=== PATIENT | female | born 1990 | race African-American/Black ===

== ENCOUNTER 2019-09-26 11:25 | Outpatient (CLI) | payer OTHER, SELFPAY ==
--- NOTE | ~2019-09-26 | XR_ITS ---
XR lumbar spine min 4V DATE: 09/26/2019 11:55 INDICATION: Radiculopathy TECHNIQUE: AP, lateral, COMPARISON: None FINDINGS: There is a transitional lumbosacral vertebra. No fracture or bone destruction. The pedicles are intact. The lumbar interspaces are well preserved . The sacroiliac joints are intact. No spondylosis or spondylolisthesis. IMPRESSION: Transitional lumbosacral vertebra Reviewed, dictated and finalized at location B.
== END 2019-09-26 11:26 | disposition home or self-care (01) ==
LOC: ANHIMG 11:32
PROVIDERS: PCP Family Medicine; Visit Provider Family Medicine
DX: M54.17 Radiculopathy, lumbosacral region (principal); Q76.49 Other congenital malformations of spine, not associated with scoliosis
CPT/HCPCS: 72110

== ENCOUNTER 2019-10-04 12:37 | Outpatient (CLI) | payer OTHER, SELFPAY ==
--- NOTE | ~2019-10-04 | MR_ITS ---
EXAMINATION: MR lumbar spine wo con DATE: 10/04/2019 13:25 INDICATION: Lumbar radiculopathy. TECHNIQUE: Magnetic resonance imaging (MRI) of the lumbar spine was performed without intravenous con trast. Sequences included sagittal T2-weighted FSE, sagittal T2-weighted FS FSE, sagittal T1-weighted FSE, and axial T2-weighted FSE. COMPARISON: Lumbar spine radiographs 09/26/2019 FINDINGS: There is a transitional segment at lumbosacral junction is designated S1. Bone alignment is normal. Vertebral body heights and intervertebral disc heights are normal. The distal spinal cord si gnal intensity is normal. The conus medullaris is at L1-L2. The following disc levels are specificall y discussed: L1-L2: The disc does not extend beyond the endplate margin. There is mild bilateral facet joint osteo arthritis. There is no neural foraminal stenosis. There is no central canal stenosis. L2-L3: The disc does not extend beyond the endplate margin. There is no facet joint osteoarthritis. T here is no neural foraminal stenosis. There is no central canal stenosis. L3-L4: The disc does not extend beyond the endplate margin. There is mild bilateral facet joint osteo arthritis. There is no neural foraminal stenosis. There is no central canal stenosis. L4-L5: The disc does not extend beyond the endplate margin. There is no facet joint osteoarthritis. T here is no neural foraminal stenosis. There is no central canal stenosis. L5-S1: There is a right foraminal protrusion. There is mild bilateral facet joint osteoarthritis. The re is mild right neural foraminal stenosis. There is no central canal stenosis. IMPRESSION: 1. Mild lumbar spondylosis. Reviewed, dictated and finalized at location A. IMPRESSION: 1. Mild lumbar spondylosis.
== END 2019-10-04 12:38 | disposition home or self-care (01) ==
PROVIDERS: PCP Family Medicine; Visit Provider Family Medicine
DX: M47.26 Other spondylosis with radiculopathy, lumbar region (principal)
CPT/HCPCS: 72148

== ENCOUNTER → 2020-07-03 12:11 | Outpatient (CLI) | payer OTHER, SELFPAY ==
--- NOTE | ~2020-07-03 | XR_ITS ---
XR foot RT 2V DATE: 07/03/2020 12:22 INDICATION: Positive KEVIN TECHNIQUE: AP and lateral views of right foot COMPARISON: None FINDINGS: No fracture or dislocation, periosteal reaction or bone destruction. Joint spaces are prese rved. No erosive changes. IMPRESSION: Negative Reviewed, dictated and finalized at location A. IMPRESSION: Negative
--- NOTE | ~2020-07-03 | XR_ITS ---
XR foot LT 2V DATE: 07/03/2020 12:23 INDICATION: Positive KEVIN TECHNIQUE: AP and lateral views COMPARISON: None FINDINGS: No fracture or dislocation, periosteal reaction or bone destruction or erosive change. Join t spaces are well preserved. IMPRESSION: Negative Reviewed, dictated and finalized at location A. IMPRESSION: Negative
== END ==
DX: R76.8 Other specified abnormal immunological findings in serum (principal); I73.00 Raynaud's syndrome without gangrene; M79.671 Pain in right foot; M79.672 Pain in left foot
CPT/HCPCS: 73620

== ENCOUNTER 2021-03-08 16:29 | Outpatient (RCR) | payer OTHER, SELFPAY ==
[2021-03-08 17:00] VITALS: BP 90/57; PULSE 96
[2021-03-08 18:10] LABS: Add Urine Microscopic? YES; Appearance Urine Cloudy (Clear); Bacteria Urine Trace /hpf; Bilirubin Urine Negative (Negative); Blood Urine Negative (Negative); Color Urine Yellow (Yellow); Glucose Urine UA Negative (Negative); Ketones Urine Negative (Negative); Leukocyte Esterase Ur Negative LEU/UL (NEGATIVE); Mucus Urine Rare /lpf; Nitrate Urine Negative (Negative); Protein Urine 1+ mg/dL (Negative); Specific Grav Ur 1.028 (1.001-1.035); Squamous Epithelial Cell Urine Few /hpf (Few); Urobilinogen Urine Negative mg/dL (<2.0); WBC Urine 0-3 /hpf (0-3)
== END 2021-06-06 23:59 | disposition home or self-care (01) ==
LOC: ANHOBOP 16:29
PROVIDERS: PCP Family Medicine; Visit Provider Obstetrics & Gynecology
DX: O99.891 Other specified diseases and conditions complicating pregnancy (principal); R55 Syncope and collapse; Z3A.21 21 weeks gestation of pregnancy
CPT/HCPCS: 59025; 81001; 87086; 87088

== ENCOUNTER 2021-05-05 09:43 | Observation (INO) | payer OTHER, SELFPAY ==
[2021-05-05] VITALS (23 sets, daily range): BP systolic 87–103; BP diastolic 51–81; PULSE 78–110; O2SAT 96–100; BMI 27.3
--- NOTE | 2021-05-05 10:24 | OBADM ---
This patient, Meredith Gimenez, admitted to the OB room OB Post 113 for observation. Patient/family oriented to hospital policies and general routines including ID bracelet, bed and alarms, visiting hours, pain management, procedures, bathroom and other care routines, personal items, smoking policy, room service/diet, and visiting hours. Patient/Family are encouraged to report perceived risks to care and to ask questions if they do not understand what they are told or what they should do.
[2021-05-05 10:44] LABS: Glucose Point of Care 80 mg/dl (65-105)
[2021-05-05 12:33] LABS: Add Urine Microscopic? YES; Appearance Urine Clear (Clear); Bilirubin Urine Negative (Negative); Blood Urine Negative (Negative); Color Urine Yellow (Yellow); Glucose Urine UA Negative (Negative); Ketones Urine Negative (Negative); Leukocyte Esterase Ur Trace LEU/UL (Negative); Mucus Urine Rare /lpf; Nitrate Urine Negative (Negative); Protein Urine Negative (Negative); RBC Urine 0-2 /hpf (0-2); Specific Grav Ur 1.005 (1.001-1.035); Squamous Epithelial Cell Urine Few /hpf (Few); Urobilinogen Urine Negative mg/dL (<2.0); WBC Urine 0-3 /hpf
--- NOTE | 2021-05-23 11:44 | PM.OBTRLD ---
OB - Triage/Final Diagnosis Visit Information Comments/Additional reasons for admission: I have assessed the risk for this patient, Meredith Gimenez, and determined that she would benefit from observation care. Evaluation Laboratory results: Laboratory Tests 05/05/21 05/05/21 10:38 11:15 POC Capillary Glucose 80 Urine Color Yellow Urine Appearance Clear Urine pH 7.0 Ur Specific Leopold 1.005 Urine Protein Negative Urine Glucose (UA) Negative Urine Ketones Negative Ur Blood (Man) Negative Urine Nitrate Negative Urine Bilirubin Negative Urine Urobilinogen Negative Leukocyte Esterase Rfl Trace H Urine RBC 0-2 Urine WBC 0-3 Ur Squamous Epith Cells Few Urine Mucus Rare Final Diagnosis (1) Vomiting affecting : Code(s): O21.9 - Vomiting of , unspecified Status: Acute
== END 2021-05-05 13:15 | disposition home or self-care (01) ==
PROVIDERS: Admitting Provider Obstetrics & Gynecology; PCP Family Medicine; Visit Provider Obstetrics & Gynecology
DX: O21.9 Vomiting of pregnancy, unspecified (principal); Z3A.30 30 weeks gestation of pregnancy
CPT/HCPCS: 81001; 82948; G0378; G0379

== ENCOUNTER 2021-07-10 08:22 | Inpatient (IN) | payer OTHER, SELFPAY ==
[2021-07-10] VITALS (32 sets, daily range): BP systolic 97–144; BP diastolic 51–83; PULSE 80–124; RESP 18; TEMP 36.1–37.1; O2SAT 99–100; BMI 30.5
[2021-07-10 09:32] LABS: Basophils Percent Auto 0.4 % (0.2-1.2); Eosinophils Absolute Auto 0.1 K/mm3 (0-0.3); Eosinophils Percent Auto 1.2 % (0-4.4); Hematocrit 38.3 % (37.0-47.0); Hemoglobin 12.6 g/dL (12.0-15.0); Immature Granulocyte Absolute 0.06 K/mm3 (0.00-0.031); Immature Granulocyte Percent A 0.6 % (0-0.5); Mean Corpuscular HGB Conc 32.9 g/dl (32-36); Mean Corpuscular Hemoglobin 29.9 pg (26-34); Mean Corpuscular Volume 90.8 fl (80-100); Mean Platelet Volume 10.3 fl (7.4-10.4); Monocytes Absolute Auto 0.7 K/mm3 (0.1-0.6); Monocytes Percent Auto 6.9 % (2.6-8.5); Neutrophils Absolute Auto 6.8 K/mm3 (1.3-6.7); Neutrophils Percent Auto 71.9 % (45.5-73.1); Platelet Count Result 224 k/mm3 (150-375); Red Blood Count 4.22 M/mm3 (4.2-5.4); Red Cell Distribution Width 14.6 % (11.5-14.5); White Blood Count 9.5 K/mm3 (4.5-10.0)
[2021-07-10] MEDS: LACTATED RINGERS 1,000 ML 125 ML IV CONT (09:39)
[2021-07-10] MEDS: ceFAZolin 2 GM/D5W 50 ML 2 GM/50 ML BAG IVPB (09:41)
--- NOTE | 2021-07-10 09:58 | LDADM ---
This patient, Meredith Gimenez, was admitted to Labor/Delivery/Recovery 103 on 07/10/21 at 08:22. Plans for labor, pain management and were discussed with patient. Patient/family oriented to hospital policies and general routines including ID bracelet, bed and alarms, visiting hours, pain management, procedures, bathroom and other care routines, personal items, smoking policy, room service/diet and guest tray routines, infant security routines, and visiting hours. Patient/Family are encouraged to report perceived risks to care and to ask questions if they do not understand what they are told or what they should do. See OBIX for further documentation.
[2021-07-10] MEDS: ONDANSETRON INJ 4 MG/2 ML VIAL IV PUSH (10:18)
[2021-07-10] MEDS: fentaNYL CITRATE INJ (*CRX) 100 MCG/2 ML VIAL 50 MCG IV PUSH (10:30)
--- NOTE | 2021-07-10 11:06 | P.PNAN_ITS ---
Anes - Eval Pre Procedure Procedure: labor epidural Date/Time: 07/10/21 11:06 Surgeon: kalyn Preop Diagnosis: pain during labor Pre Op Diagnosis: Labor Patient Data Age: 31 Gender: F Height: 1.65 m Weight: 83.25 kg Last Vital Signs Temp 36.6 C 07/10/21 09:48 Pulse 124 H 07/10/21 09:30 BP 111/76 07/10/21 09:30 Allergies Allergy/AdvReac Type Severity Reaction Status Date / Time Penicillins Allergy Unknown Skin Verified 11/17/20 15:42 Reaction Home Medications Medication Instructions Recorded Confirmed Type prenat.vits,edwina,nuf-oiru-uonoi 1 tablet PO DAILY 11/19/20 07/10/21 History cetirizine [Zyrtec] mg 07/10/21 History Laboratory Tests 07/10/21 07/10/21 07/10/21 09:18 09:18 09:18 WBC 9.5 K/mm3 K/mm3 (4.5-10.0) RBC 4.22 M/mm3 M/mm3 (4.2-5.4) Hgb 12.6 g/dL g/dL (12.0-15.0) Hct 38.3 % % (37.0-47.0) MCV 90.8 fl fl (80-100) MCH 29.9 pg pg (26-34) MCHC 32.9 g/dl g/dl (32-36) RDW 14.6 % H % (11.5-14.5) Plt Count 224 k/mm3 k/mm3 (150-375) MPV 10.3 fl fl (7.4-10.4) Immature Gran % (Auto) 0.6 % H % (0-0.5) Neut % (Auto) 71.9 % % (45.5-73.1) Lymph % (Auto) 19.0 % % (18.3-44.2) [place] % (Auto) 6.9 % % (2.6-8.5) Eos % (Auto) 1.2 % % (0-4.4) Baso % (Auto) 0.4 % % (0.2-1.2) Lymph # (Auto) 1.80 K/mm3 K/mm3 (0.9-3.2) [place] # (Auto) 0.7 K/mm3 H K/mm3 (0.1-0.6) Eos # (Auto) 0.1 K/mm3 K/mm3 (0-0.3) Baso # (Auto) 0.0 K/mm3 K/mm3 (0.0-0.1) Abs Immat Gran (auto) 0.06 K/mm3 H K/mm3 (0.00-0.031) Absolute Neuts (auto) 6.8 K/mm3 H K/mm3 (1.3-6.7) Absolute Nucleated RBC 0.0 K/mm3 K/mm3 (0.0-0.012) Nucleated RBC % 0.0 % % (0.0-0.2) RPR Pending Blood Type B Positive Antibody Screen Pending Patient hx anesthesia problems: none Family hx anesthesia problems: none Results Review: All pre-operative results and documents have been reviewed as part of the pre-operative evaluation. 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
[2021-07-10] MEDS: fentaNYL CITRATE INJ (*CRX) 100 MCG/2 ML VIAL IV PUSH (11:25)
[2021-07-10] MEDS: OXYTOCIN 30 UNITS/NS 500 ML 30 UNITS/500 ML BAG 125 UNITS IV CONT (14:08)
--- NOTE | 2021-07-10 14:27 | WPDOBADMIT ---
Obstetrics - Admit Note Admission Note: record reviewed. Additions to the history and/or subsequent changes in the physical findings follow. 31 y/o G1 at 39 4/7 weeks here after gush of fluid. SROM diagnosed. Ancef given for GBS bacteruria. Cervix dilated completely. AVSS NST reactive TOCO contractions every 4-5 min ABD soft, nontender, gravid, vertex EXT nontender Cervix C/+2 A: IUP at term with SROM. P: Pushing. Anticipate .
--- NOTE | 2021-07-10 14:29 | PM.OBPRVD ---
OB - Delivery Note Procedure Delivery date: 07/10/21 Procedure: Induction method: None Delivery monitor: External FHT and External Uterine Route of delivery: Episiotomy description: Midline Laceration Description: Perineal - 2nd Degree Delivery repair: vicryl (3-0) Specimen: Yes (cord blood) Quantitative Blood Loss (ml): 260 Anesthesia type: Local (1% lidocaine) Disposition: PACU Complications: None Narrative: 31 y/o G1 at 39 4/7 weeks gestation who presented to the hospital with gush of fluid. SROM diagnosed. She was given Ancef IV for GBS bacteruria. Labor progressed without stimulation and her cervix dilated completely. She pushed with good effort. Lidocaine 1% infiltrated to perineum (totally 16 mL), and a midline episiotomy was made. The infant's head to the perineum. A loose nuchal cord x 2 was splinted and the body delivered. The cord was reduced. The nose and mouth were bulb suctioned. After a delay, the cord was clamped and cut. The was handed off the field. Cord blood was collected. The placenta delivered spontaneously and was grossly normal in appearance. The usual 3 vessel cord was noted. The midline episiotomy was reapproximated using 3 0 Vicryl in the usual layered fashion. Excellent hemostasis resulted as did excellent reapproximation of the normal anatomy. Needle and instrument counts were correct. The patient was taken to recovery room in stable condition. The went to the nursery in stable condition. I was present and scrubbed for the entire delivery. [place] Baby Date of : 07/10/21 Time of : 14:02 Weeks of gestation at delivery: 39 gender: Female presentation: vertex position: Left Occiput Anterior Placenta delivery description: Spontaneous and Normal Configuration Cord Vessel Description: 3 Vessels, Nuchal Cord (x2) and Delayed Cord Clamping score one minute: 8 score five minutes: 9
--- NOTE | 2021-07-10 14:35 | PM.OBDSVD ---
DS: Admitting Diagnosis Discharge Date 07/12/21 Admitting Diagnosis IUP at 39 4/7 weeks SROM GBS bacteruria DS: Discharge Diagnosis Discharge Diagnosis (1) (normal spontaneous vaginal delivery): Code(s): O80 - Encounter for full-term uncomplicated delivery Status: Acute (2) GBS (group B streptococcus) UTI complicating : Code(s): O23.40 - Unspecified infection of urinary tract in , unspecified trimester; B95.1 - Streptococcus, group B, as the cause of diseases classified elsewhere Status: Acute OB - DS: Summary OB Procedures : None OB Procedures Intrapartum: Spontaneous Vag Delivery OB Procedures: : None DS: Data Data Completed and Pending Labs on day of discharge: Labs from last 24 hours 07/10/21 07/10/21 07/10/21 09:18 09:18 09:18 WBC 9.5 RBC 4.22 Hgb 12.6 Hct 38.3 MCV 90.8 MCH 29.9 MCHC 32.9 RDW 14.6 H Plt Count 224 MPV 10.3 Immature Gran % (Auto) 0.6 H Neut % (Auto) 71.9 Lymph % (Auto) 19.0 [place] % (Auto) 6.9 Eos % (Auto) 1.2 Baso % (Auto) 0.4 Lymph # (Auto) 1.80 [place] # (Auto) 0.7 H Eos # (Auto) 0.1 Baso # (Auto) 0.0 Abs Immat Gran (auto) 0.06 H Absolute Neuts (auto) 6.8 H Absolute Nucleated RBC 0.0 Nucleated RBC % 0.0 RPR Pending Blood Type B Positive Antibody Screen Negative Discharge Plan Discharge Attending physician on discharge: Osei Georges Discharging Clinician: Osei Georges Patient Disposition: Home, Self-Care Activity: pelvic rest Diet: regular Discharge Instructions: Call or return if temperature above 100.4? F, increased abdominal pain, increased vaginal bleeding or any new problems Education: Mom and Baby Guide Given to: Mother Follow-Up: Call your delivering provider's office for an appointment to be seen in: 6 Weeks Mom and baby should come to the [facility] for the follow-up appointment. Appointment Date/Time: July 13, 2021 at 11:00 am What to expect at your follow-up visit: Blood Pressure Check Physical Assessment Call [phone] if you are unable to keep your appointment time. BREAST CARE: * Wear a snug supportive bra. * For engorgement discomfort: Breast Feeding: * Apply warm moist washcloths * Express milk as needed to relieve engorgement * Wear loose clothing * For sore nipples: * Identify correct latch-on * Apply warm moist washcloths before and after nursing * Air dry nipples after nursing * May apply Lansinoh cream to nipples EPISIOTOMY/PERINEAL CARE: * Until bleeding stops, use your shweta bottle after urinating * Change your pad frequently throughout the day * You may take sitz baths several times a day (fill your bathtub with warm water and soak for 20 minutes.) Do NOT bathe in the water * No tub baths until seen by your physician - You may shower ACTIVITY: * Rest as much as possible. * Do not exercise or lift anything heavier than your baby (such as laundry or other children.) * Avoid stairs or driving as much as possible. * Do not put anything into the vagina. No douching, tampons, or sexual activity until seen by physician. NOTIFY PHYSICIAN IF YOU HAVE ANY QUESTIONS OR IF ANY OF THE FOLLOWING SYMPTOMS OCCUR: * If your episiotomy becomes red, swollen, or more painful than what you have experienced in the hospital. * If your vaginal bleeding becomes foul smelling. * If your vaginal bleeding becomes more heavy than a period or if your bleeding changes from pink to bright red. However, you may pass an occasional walnut-sized clot once or twice for the first week . * If you experience a sharp, shooting pain in you calves. * If you discover a hard, reddened area on your breast or if you experience flu-like symptoms. DIET: * Eat regular, well-balanced meals.
[2021-07-10] MEDS: WITCH HAZEL 40 PADS 1 PAD TOPICAL (16:10)
[2021-07-10] MEDS: BENZOCAINE 20% AER SPR (*SP) 56 GM CAN 1 SPRAY TOPICAL (16:10)
--- NOTE | 2021-07-10 17:31 | OBPPTRN ---
1655-Patient transferred to post room #283 via wheelchair. Support person present. Oriented to unit, room, information board, rooming in, admission packet and security measures. Patient verbalizes understanding.
[2021-07-10] MEDS: IBUPROFEN 600 MG TABLET PO (17:44)
--- NOTE | 2021-07-10 18:13 | PC.NURSE ---
RN unable to assess pt. before end of shift as mother was since arrival to floor.
[2021-07-11] MEDS: IBUPROFEN 600 MG TABLET PO ×3 (00:35→15:48)
[2021-07-11 05:00] VITALS: BP 109/72; PULSE 76; RESP 18; TEMP 37.2; O2SAT 100
[2021-07-11 05:33] LABS: Hematocrit 32.7 % (37.0-47.0); Hemoglobin 10.8 g/dL (12.0-15.0)
[2021-07-11 08:00] VITALS: BP 105/64; PULSE 88; RESP 18; TEMP 36.4
[2021-07-11] MEDS: MULTIVIT/MIN/PREN/FOL AC/IRON TABLET 1 TAB PO (08:55)
[2021-07-11] MEDS: DOCUSATE SODIUM 100 MG CAPSULE PO ×2 (08:55→15:48)
[2021-07-11] MEDS: BENZOCAINE 20% AER SPR (*SP) 56 GM CAN 1 SPRAY TOPICAL (08:55)
--- NOTE | 2021-07-11 08:56 | P.PNOB_ITS ---
OB - PN: Subj Subjective Date/time seen: 07/11/21 08:56 Narrative: Pain OK. OB - PN: Obj Data Labs CBC & Chem 7: 07/11/21 05:09 Labs: Laboratory Results - last 24 hr 07/10/21 07/10/21 07/11/21 09:18 09:18 05:09 WBC 9.5 RBC 4.22 Hgb 12.6 10.8 L Hct 38.3 32.7 L MCV 90.8 MCH 29.9 MCHC 32.9 RDW 14.6 H Plt Count 224 MPV 10.3 Immature Gran % (Auto) 0.6 H Neut % (Auto) 71.9 Lymph % (Auto) 19.0 [place] % (Auto) 6.9 Eos % (Auto) 1.2 Baso % (Auto) 0.4 Lymph # (Auto) 1.80 [place] # (Auto) 0.7 H Eos # (Auto) 0.1 Baso # (Auto) 0.0 Abs Immat Gran (auto) 0.06 H Absolute Neuts (auto) 6.8 H Absolute Nucleated RBC 0.0 Nucleated RBC % 0.0 Blood Type B Positive Antibody Screen Negative OB - PN A/P Plan Comments: A: PPD#1, doing well. P: Routine care. Exam Psych: Other: AVSS ABD soft, nontender, fundus firm EXT nontender
[2021-07-11] MEDS: WITCH HAZEL 40 PADS 1 PAD TOPICAL (08:57)
[2021-07-11 09:00] LABS: Rapid Plasma Reagin Non-Reactive (NonReactive)
[2021-07-11] MEDS: ACETAMINOPHEN 325 MG TABLET 650 MG PO (11:13)
[2021-07-11 12:30] VITALS: BP 122/77; PULSE 78; RESP 18; TEMP 37.2
--- NOTE | 2021-07-11 14:58 | PC.NURSE ---
1350 -1415 Introductions were made, then consulted with patient to assess needs related to . Mother led the conversation with her experience feeding her infant so far. Mother works well with her infant. Encouraged understanding of the benefits of skin to skin (unwrapping infant and placing vertically on her chest), responsive feeding and how to watch for early feeding signs, frequency of feeding on demand about every 8-12 times in 24 hours (every 2-3 hours), milk production, duration of feeding, signs of adequate intake/output and how to record on the feeding sheet. Reviewed positioning and ear, shoulder, hip alignment, supporting the breast, asymmetrical latch (off-center), and leading with the chin with a big open side gape. Infant latched optimally to the right breast in cross cradle position. Education given to mother of how to visualize suck/swallow ratios and drinking at the breast. was able to maintain latch without discomfort to mother. Nipple care reviewed with optimal latch and good positioning. Reviewed good handwashing when or touching the breast/nipples to prevent infection. Resources used to facilitate learning were used with the visual handouts/ tool/mom and baby guide. Mother voiced understanding of responsive feedings, stimulating with skin to skin, hand expressed colostrum, touch, talking to infant to encourage if it has been 2 -3 hours since the start of the last , to call if does not latch or there is discomfort with . Reported to the primary RN.
[2021-07-11] MEDS: LANOLIN (LANSINOH) 7.5 GM CREAM 1 APPLIC TOPICAL (15:47)
[2021-07-11 19:15] VITALS: BP 111/72; PULSE 81; RESP 18; TEMP 36.7; O2SAT 98
[2021-07-12] MEDS: IBUPROFEN 600 MG TABLET PO (06:15)
[2021-07-12 08:00] VITALS: BP 108/71; PULSE 68; RESP 18; TEMP 36.8
[2021-07-12] MEDS: DOCUSATE SODIUM 100 MG CAPSULE PO (08:05)
[2021-07-12] MEDS: MULTIVIT/MIN/PREN/FOL AC/IRON TABLET 1 TAB PO (08:05)
--- NOTE | 2021-07-12 08:15 | PC.NURSE ---
Patient viewed the discharge video Mother & Baby Care, The First Two Weeks . Patient was given the opportunity and encouraged to ask questions. Patient verbalized understanding of information shared and has been given the mother/baby guide for home reference.
--- NOTE | 2021-07-12 09:02 | PM.OBPNVD ---
OB - PN: Subj Subjective Date/time seen: 07/12/21 09:02 Narrative: Pain OK. Would like to go home. OB - PN: Obj Data Labs CBC & Chem 7: 07/11/21 05:09 OB - PN A/P Plan Comments: A: PPD#2, doing well. P: Home to f/u 6 weeks. Exam Psych: Other: AVSS ABD soft, nontender, fundus firm EXT nontender
--- NOTE | 2021-07-12 10:11 | PC.NURSE ---
Self care and infant care discharge instructions given including follow up visit date and time. No questions or concerns voiced. Very pleasant and cooperative.
--- NOTE | 2021-07-12 11:56 | PC.NURSE ---
1130 - Mother led the conversation with her experience and plan to feed her so far and her ability to independently latch optimally without discomfort with exception to at least one late night breastfeed on the left breast. Mother is concerned about the left nipple looking different . Mother is independently with cradle hold standing at her bedside. Mother denies pain. is detached after repositions her mouth shallow after assessment. There appears to be a clear tiny bubble on the tip of the nipple. Reviewed positioning, 130-150 degree latch is the goal for each feeding, and if there is pain to detach and reattach. Reminded parents to use good handwashing technique to prevent infection. Mother is feeding appropriately for growth of infant and understands stimulating to eat if needed. Infant has had appropriate feedings in the last 24 hours meets the outcomes for weight, output and jaundice at this time. Mother states she is confident to continue effectively her at home, reviewed the follow-up appt with RN, CLC tomorrow, or when to call for assistance and denies any additional assistance or education at this time. Reinforced understanding of milk production, transition of milk, signs of adequate intake, prevention/relief of engorgement, responsive after visualizing feeding cues, the different methods of stimulating infant to breastfeed 2-3 hours after the start of the last feeding, community resources, medication information reviewed per [employer] and when to call a provider using the resource of the mom and baby guide/[facility] website. Mother voiced understanding of the education shared. Reported to the primary RN.
[2021-07-13 11:12] VITALS: BP 118/80; PULSE 71; RESP 16; TEMP 37.1; O2SAT 100
== END 2021-07-12 11:45 | disposition home or self-care (01) | DRG 807 ==
LOC: ANHLDR 14:36 → ANHOB2 17:07
PROVIDERS: Admitting Provider Obstetrics & Gynecology; PCP Family Medicine; Visit Provider Obstetrics & Gynecology
DX: O99.824 Streptococcus B carrier state complicating childbirth (principal); Z37.0 Single live birth; Z3A.39 39 weeks gestation of pregnancy; O69.81X0 Labor and delivery complicated by cord around neck, without compression, not applicable or unspecified
CPT/HCPCS: 36415; 84112; 85014; 85018; 85025; 86592; 86850; 86900; 86901; A9270; J0690; J2405; J2590; J3010; J7120

== ENCOUNTER 2023-11-13 07:51 | Outpatient (CLI) | payer OTHER, SELFPAY ==
[2023-11-13 11:15] LABS: OBXCEM ROM Plus Negative
== END 2023-11-13 08:55 | disposition home or self-care (01) ==
LOC: ANHOBOP 08:38 → ANHLDR 08:39
PROVIDERS: PCP Family Medicine; Visit Provider Obstetrics & Gynecology
DX: O41.8X90 Other specified disorders of amniotic fluid and membranes, unspecified trimester, not applicable or unspecified (principal)
CPT/HCPCS: 59025; 84112; 99199

== ENCOUNTER 2023-11-24 13:59 | Inpatient (IN) | payer OTHER, SELFPAY ==
[2023-11-24] VITALS (27 sets, daily range): BP systolic 91–184; BP diastolic 61–156; PULSE 61–160; RESP 18; TEMP 36.4–37; O2SAT 96–100; BMI 29.0
[2023-11-24] MEDS: LACTATED RINGERS 1,000 ML 125 ML IV CONT (14:47)
[2023-11-24] MEDS: ceFAZolin 2 GM/D5W 50 ML 2 GM/50 ML BAG IVPB (14:48)
[2023-11-24] MEDS: fentaNYL CITRATE INJ (*CRX) 100 MCG/2 ML VIAL IV PUSH (14:48)
[2023-11-24 15:04] LABS: Basophils Percent Auto 0.3 % (0.2-1.2); Eosinophils Absolute Auto 0.1 K/mm3 (0-0.3); Eosinophils Percent Auto 0.6 % (0-4.4); Hematocrit 39.4 % (37.0-47.0); Hemoglobin 13.2 g/dL (12.0-15.0); Immature Granulocyte Absolute 0.03 K/mm3 (0.00-0.031); Immature Granulocyte Percent A 0.3 % (0-0.5); Mean Corpuscular HGB Conc 33.5 g/dl (32-36); Mean Corpuscular Hemoglobin 30.6 pg (26-34); Mean Corpuscular Volume 91.2 fl (80-100); Monocytes Absolute Auto 0.6 K/mm3 (0.1-0.6); Monocytes Percent Auto 6.8 % (2.6-8.5); Neutrophils Absolute Auto 5.9 K/mm3 (1.3-6.7); Platelet Count Result 220 k/mm3 (150-375); Red Blood Count 4.32 M/mm3 (4.2-5.4); Red Cell Distribution Width 13.1 % (11.5-14.5); White Blood Count 8.9 K/mm3 (4.5-10.0)
--- NOTE | 2023-11-24 15:05 | LDADM ---
This patient, Meredith Gimenez, was admitted to Labor/Delivery/Recovery 106 on 11/24/23 at 13:59. Plans for labor, pain management and were discussed with patient. Patient/family oriented to hospital policies and general routines including ID bracelet, bed and alarms, visiting hours, pain management, procedures, bathroom and other care routines, personal items, smoking policy, room service/diet and guest tray routines, infant security routines, and visiting hours. Patient/Family are encouraged to report perceived risks to care and to ask questions if they do not understand what they are told or what they should do. See OBIX for further documentation.
[2023-11-24 15:44] LABS: Rapid Plasma Reagin Non-Reactive (NonReactive)
[2023-11-24 16:05] LABS: HIV 1/2 Ab P24 Ag Result Negative (Negative)
[2023-11-24] MEDS: OXYTOCIN 10 UNITS/ML VIAL (16:50)
--- NOTE | 2023-11-24 16:59 | WPDOBADMIT ---
Obstetrics - Admit Note Admission Note: record reviewed. Additions to the history and/or subsequent changes in the physical findings follow. 33 y/o at 39 2/7 weeks here with contractions. GBS pos, PCN allergic. otherwise uncomplicated. AVSS NST reactive TOCO contractions every 2-3 min ABD soft, nontender, gravid, vertex EXT nontender Cervix 4-5/50/-2 on admission. A: IUP at term with labor. P: See delivery note.
--- NOTE | 2023-11-24 17:03 | PM.OBPRVD ---
OB - Vaginal Delivery Note Procedure Delivery date: 11/24/23 Events: Positive Group B Strep (GBS) Induction method: None Delivery monitor: External FHT and External Uterine Route of delivery: Episiotomy description: Right Mediolateral Delivery repair: vicryl (3-0 vicryl) Specimen: Yes (cord blood) Quantitative Blood Loss (ml): 125 Anesthesia type: Local (1% lidocaine) Disposition: PACU Complications: None Narrative: 33 y/o at 39 2/7 weeks who presented with contractions. Labor was diagnosed. Ancef given for GBS colonization. Her labor progressed rapidly and her cervix dilated completely. I was called. Mayra Greco, a nurse christian science healer, was standing by while I was en route and, when FHR bradycardia was encountered, made an RML effected delivery. Meconium-stained fluid noted. Nuchal and body cord noted. The RML was free of extension, was infiltrated with 1% lidocaine and reapproximated with 3-0 Vicryl. Cord blood was collected. The placenta delivered spontaneously and was grossly normal in appearance. The usual 3 vessel cord was noted. Needle and instrument counts were correct. The patient was taken to recovery room in stable condition. The infant went to the nursery in stable condition. I was present and scrubbed for the entire delivery. Baby Date of : 11/24/23 Time of : 16:40 Gestational Age by Date: 39 gender: Male presentation: vertex Placenta delivery description: Spontaneous Cord Vessel Description: 3 Vessels, Nuchal Cord and Around Body score one minute: 8 score five minutes: 9
--- NOTE | 2023-11-24 17:10 | PM.OBDSVD ---
DS: Admitting Diagnosis Discharge Date 11/26/23 Admitting Diagnosis IUP at 39 2/7 weeks Labor GBS colonization DS: Discharge Diagnosis Discharge Diagnosis (1) GBS (group B Streptococcus carrier), +RV culture, currently : Code(s): O99.820 - Streptococcus B carrier state complicating Status: Acute (2) (normal spontaneous vaginal delivery): Code(s): O80 - Encounter for full-term uncomplicated delivery Status: Acute OB - DS: Summary OB Procedures : None OB Procedures Intrapartum: Spontaneous Vag Delivery and GBS prophylaxis OB Procedures: : None Peripartum Data Episiotomy description: Right Mediolateral Time Spent with Patient Time attestation: Total time spent providing and/or coordinating discharge services: DS: Data Data Completed and Pending Labs on day of discharge: Labs from last 24 hours 11/24/23 14:49 WBC 8.9 RBC 4.32 Hgb 13.2 Hct 39.4 MCV 91.2 MCH 30.6 MCHC 33.5 RDW 13.1 Plt Count 220 MPV 10.0 Immature Gran % (Auto) 0.3 Neut % (Auto) 66.0 Lymph % (Auto) 26.0 Piute % (Auto) 6.8 Eos % (Auto) 0.6 Baso % (Auto) 0.3 Lymph # (Auto) 2.30 Piute # (Auto) 0.6 Eos # (Auto) 0.1 Baso # (Auto) 0.0 Abs Immat Gran (auto) 0.03 Absolute Neuts (auto) 5.9 Absolute Nucleated RBC 0.000 Nucleated RBC % 0.0 RPR Non-reactive HIV 1&2 Ab/P24 Ag 4thGn Negative Blood Type B Positive Antibody Screen Negative Discharge Plan Discharge Attending physician on discharge: Osei Georges Discharging Clinician: Osei Georges Patient Disposition: Home, Self-Care Activity: pelvic rest Diet: regular Discharge Instructions: Education: Mom and Baby Guide Given to: Mother Follow-Up: Call your delivering provider's office for an appointment to be seen in: 6 Weeks Mom and baby [facility] for the follow-up appointment. Appointment Date/Time: November 27, 2023 at 9:00 am What to expect at your follow-up visit: Physical Assessment Call [phone] if you are unable to keep your appointment time. BREAST CARE: * Wear a snug supportive bra. * For engorgement discomfort: Breast Feeding: * Apply warm moist washcloths * Express milk as needed to relieve engorgement * Wear loose clothing Bottle Feeding: * May apply ice packs * For sore nipples: * Identify correct latch-on * Apply warm moist washcloths before and after nursing * Air dry nipples after nursing * May apply Lansinoh cream to nipples ABDOMINAL INCISION: (if applicable) * Allow incision to air dry * Do NOT use lotions for powders on your incision * When showering, allow soap and water to run over the incision, but do not wash incision EPISIOTOMY/PERINEAL CARE: * Until bleeding stops, use your shweta bottle after urinating * Change your pad frequently throughout the day * You may take sitz baths several times a day (fill your bathtub with warm water and soak for 20 minutes.) Do NOT bathe in the water * No tub baths until seen by your physician - You may shower ACTIVITY: * Rest as much as possible. * Do not exercise or lift anything heavier than your baby (such as laundry or other children.) * Avoid stairs or driving as much as possible. * Do not put anything into the vagina. No douching, tampons, or sexual activity until seen by physician. NOTIFY PHYSICIAN IF YOU HAVE ANY QUESTIONS OR IF ANY OF THE FOLLOWING SYMPTOMS OCCUR: * If your episiotomy or incision becomes red, swollen, or more painful than what you have experienced in the hospital. * If your vaginal bleeding becomes foul smelling. * If your vaginal bleeding becomes more heavy than a period or if your bleeding changes from pink to bright red. However, you may pass an occasional walnut-sized clot once or twice for the first week . * If you exper
[2023-11-24] MEDS: IBUPROFEN 600 MG TABLET (17:45)
[2023-11-24] MEDS: IBUPROFEN 600 MG TABLET PO (22:29)
[2023-11-24] MEDS: ACETAMINOPHEN 325 MG TABLET 650 MG PO (22:29)
[2023-11-25 04:00] VITALS: BP 97/64; PULSE 88; RESP 16; TEMP 36.8
[2023-11-25] MEDS: ACETAMINOPHEN 325 MG TABLET 650 MG PO ×2 (04:37→12:49)
[2023-11-25] MEDS: IBUPROFEN 600 MG TABLET PO ×3 (04:38→21:52)
[2023-11-25 04:59] LABS: Hematocrit 33.9 % (37.0-47.0); Hemoglobin 11.1 g/dL (12.0-15.0)
--- NOTE | 2023-11-25 05:30 | PM.OBPNVD ---
OB - PN: Subj Subjective Date/time seen: 11/25/23 05:30 Narrative: Pain OK. OB - PN: Obj Data Labs 11/25/23 04:32 Labs: Laboratory Results - last 24 hr 11/24/23 11/25/23 14:49 04:32 WBC 8.9 RBC 4.32 Hgb 13.2 11.1 L Hct 39.4 33.9 L MCV 91.2 MCH 30.6 MCHC 33.5 RDW 13.1 Plt Count 220 MPV 10.0 Immature Gran % (Auto) 0.3 Neut % (Auto) 66.0 Lymph % (Auto) 26.0 Sebastian % (Auto) 6.8 Eos % (Auto) 0.6 Baso % (Auto) 0.3 Lymph # (Auto) 2.30 Sebastian # (Auto) 0.6 Eos # (Auto) 0.1 Baso # (Auto) 0.0 Abs Immat Gran (auto) 0.03 Absolute Neuts (auto) 5.9 Absolute Nucleated RBC 0.000 Nucleated RBC % 0.0 RPR Non-reactive HIV 1&2 Ab/P24 Ag 4thGn Negative Blood Type B Positive Antibody Screen Negative OB - PN A/P Plan day: 1 Comments: A: PPD#1, doing well. P: Routine care. Exam Psych: Other: AVSS ABD soft, nontender, fundus firm EXT nontender
[2023-11-25] MEDS: FLUoxetine HCL 20 MG CAPSULE 40 MG PO (08:02)
[2023-11-25] MEDS: MULTIVIT/MIN/PREN/FOL AC/IRON TABLET 1 TAB PO (08:02)
[2023-11-25 08:04] VITALS: BP 101/70; PULSE 65; RESP 18; TEMP 37.1; O2SAT 99
[2023-11-25 21:44] VITALS: BP 106/67; PULSE 64; RESP 18; TEMP 37; O2SAT 97
[2023-11-26] MEDS: ACETAMINOPHEN 325 MG TABLET 650 MG PO ×2 (00:10→07:37)
[2023-11-26] MEDS: IBUPROFEN 600 MG TABLET PO ×2 (05:44→13:14)
[2023-11-26 07:35] VITALS: BP 98/57; PULSE 73; RESP 16; TEMP 36.3; O2SAT 100
[2023-11-26] MEDS: MULTIVIT/MIN/PREN/FOL AC/IRON TABLET 1 TAB PO (07:37)
[2023-11-26] MEDS: DOCUSATE SODIUM 100 MG CAPSULE PO (07:37)
--- NOTE | 2023-11-26 09:00 | PC.NURSE ---
Mother verbalizes she is able to independently latch with appropriate positioning and alignment. She has used a nipple shield at a few feedings, but not with any consistency. She successfully breastfed her first baby. She denies any nipple discomfort and is responsively . is currently meeting outcomes for weight, output, jaundice, and feeding frequencies of 8-12 times in 24 hours. Mother declines any additional assistance or education at this time. She is comfortable to go home independently. Mother is encouraged to call for assistance if her infant doesn?t latch, pain with latching, questions or concerns. Mother voiced understanding of information shared along with the mom/baby guide for an additional resource. Reported to the Primary RN.
--- NOTE | 2023-11-26 13:17 | PM.OBPNVD ---
OB - PN: Subj Subjective Date/time seen: 11/26/23 13:17 Narrative: Pain OK. Would like to go home. OB - PN: Obj Data Labs 11/25/23 04:32 OB - PN A/P Plan Comments: A: PPD#2, doing well. P: Home to f/u 6 weeks. Exam Psych: Other: AVSS ABD soft, nontender, fundus firm EXT nontender
[2023-11-27 09:37] VITALS: BP 92/54; PULSE 78; RESP 18; TEMP 37.1; O2SAT 100
== END 2023-11-26 13:35 | disposition home or self-care (01) | DRG 807 ==
LOC: ANHLDR 17:14 → ANHOB2 22:24
PROVIDERS: Admitting Provider Obstetrics & Gynecology; PCP Family Medicine; Visit Provider Obstetrics & Gynecology
DX: O99.824 Streptococcus B carrier state complicating childbirth (principal); Z37.0 Single live birth; Z3A.39 39 weeks gestation of pregnancy; O77.0 Labor and delivery complicated by meconium in amniotic fluid; O69.82X0 Labor and delivery complicated by other cord entanglement, without compression, not applicable or unspecified
CPT/HCPCS: 36415; 85014; 85018; 85025; 86592; 86703; 86850; 86900; 86901; A9270; G0432; J0690; J2590; J2795; J3010; J7120

== ENCOUNTER 2023-12-04 07:31 | Outpatient (RCR) | payer OTHER, SELFPAY ==
--- NOTE | 2023-12-04 07:35 | PC.NURSE ---
In- [phone] Out- [phone] Reason for visit: Meredith called yesterday evening because baby Ankush was inconsolable and unable to latch to feed. The RN made an appointment for this morning and advised mom to pump and bottle feed if she can't latch baby. History: Meredith and Ankush have been with the nipple shield since delivery, without issues. She did notice some plugged ducts yesterday when baby wouldn't feed and she used heat and massage to clear them. She pumped a few times in the night (4 ounces average total milk pumped) to supplement baby while he wasn't latching. Baby is ten days old today and is already back at weight. Mom breastfed her first baby for 11 months and had a good milk supply, also using the shield for the first month or so. Infant History: Ankush was born at 39 weeks and has exclusively breastfed. He has a normal appearing tongue and palate and is able to move his tongue well past his bottom lip. Observations: Mother can latch independently with the shield; we tried without the shield and baby can latch, he just doesn't maintain the latch very well. Encouraged mom to continue to try without the shield frequently so baby can practice latching to the nipple. She knows how to do this because she did it with her daughter. Baby does roll his upper lip under so mom will check each latch for proper lip placement. We also discussed keeping very close to her body and not allowing the shield to slide in and out of baby's mouth when he sucks, as this could be causing soreness to her nipples. Mom seemed more confident after baby latched, and we started talking about her day yesterday. She feels like maybe the disruption of their normal routine (for photos) caused baby to go too long without feeding and then he was too frustrated to latch. After that, it sounds like she lost some of her confidence and just needed some reassurance. We talked about wetting baby's mouth with some drops of milk if he is struggling to latch to the shield with a mouth that is dry from crying a lot. She can also pump to begin letdown prior to latching so he has some instant gratification . She is also using her nipple cream for soreness and will be sure to check baby's upper lip and make sure he stays close to the breast to prevent sliding of the shield on the nipple. We talked a lot about her successes with this baby and her daughter. She felt reassured to go home and continue feeding after our appointment. During the appointment, infant fed from both breasts for about 15 minutes (with frequent, heavy swallowing) and had a heavy wet and stool diaper. Mom demonstrates great hand and nipple shield hygiene. weight: 6 #12 Last weight: 6#12 (a few days ago at Dr. Crawford's office) Plan of Care: Work towards weaning from the nipple shield by continuing to attempt feedings without the shield so baby can practice latching to the nipple. Wet baby's mouth with breastmilk if he struggles to latch to the shield after persistent crying. Good nipple care including air drying with breastmilk on the nipples after feeding, followed by nipple cream as needed. If infant is inconsolable, pump and bottle feed until he is able to latch. Follow up plans: Follow up with the concrete vibrator operator as scheduled. Call for any further questions or concerns.
== END 2024-03-03 23:59 | disposition home or self-care (01) ==
LOC: ANHOBOP 07:31
PROVIDERS: PCP Family Medicine; Visit Provider Pediatrics
DX: Z39.1 Encounter for care and examination of lactating mother (principal)
CPT/HCPCS: 99202; G0463

== ENCOUNTER 2025-01-06 11:47 | Outpatient (CLI) | payer OTHER, SELFPAY ==
--- OUTSIDE RECORDS SUMMARY | 2025-01-06 14:42 | XMS_ITS | Clinical Summary ---
Author Organization [place] [id number] Address [address] [place] [id number] Phone Care Team Providers Care Viscosity Worker Name Role Phone Monty Rodriguez MD Unavailable Georgi Hutson MD Unavailable [phone] Camilo King MD Primary Care Provider [phone] Allergies Active Allergy Reactions Criticality Noted Date Comments Penicillins Hives Medium 08/01/2018 Medications MICROGESTIN 04/07, 21, 1-20 mg-mcg per tablet 07/28/2018 Active RAGWITEK 12 Amb a 1 unit tablet, sublingual 4 07/25/2018 Active Active Problems Problem Noted Date Diagnosed Date Pain in both feet 07/02/2020 Assessment & Plan (07/02/2020 6:22 PM CDT): Tender MTPs on exam without definite synovitis. Will xray feet Positive KEVIN (antinuclear antibody) 08/01/2018 Assessment & Plan (07/02/2020 6:21 PM CDT): +KEVIN 1:640 and borderline +MEDICAL LOGISTICS SPECIALIST (1.1) on labs from sales effectiveness manager. Hx angioedema. Intermittent episodes of Raynauds, most recent a month ago. Also having new pain in toes with activity. Tender MTPs on exam. Our test results in 08/04: +KEVIN 1:320, +cardiolipin, and +c1q. Otherwise negative, normal inflammatory markers, tsh, hepatitis panel, JANAY level. Discussed she has some markers that can be seen with SLE but not enough clinical symptoms to make this diagnosis yet. Will repeat serologies and get xrays of feet. Consider u/s in the future. Seen with Dr. Rodriguez. F/u 3-4 months or sooner if needed Assessment & Plan (07/04/2019 4:10 PM CDT): +KEVIN 1:640 and borderline +MEDICAL LOGISTICS SPECIALIST (1.1) on labs from sales effectiveness manager. Undergoing workup of angioedema. Not a lot of other symptoms to suggest CTD but does report white fingertips in cold and increased photosensitivity (rash/hives). Our test results in 08/04: +KEVIN 1:320, +cardiolipin, and +c1q. Otherwise negative, normal inflammatory markers, tsh, hepatitis panel, JANAY level. Discussed she has some markers that can be seen with SLE but not enough clinical symptoms to make this diagnosis yet. We need to monitor over time for change in serologies or clinical features. Discussed observing for joint pains/swelling, increased rashes, oral ulcers, pleurisy, change in breathing. F/u 1 yr or sooner if new problems. Repeat serologies today. Assessment & Plan (01/03/2019 4:39 PM CDT): +KEVIN 1:640 and borderline +MEDICAL LOGISTICS SPECIALIST (1.1) on labs from sales effectiveness manager. Undergoing workup of angioedema. Not a lot of other symptoms to suggest CTD but does report white fingertips in cold and increased photosensitivity (rash/hives). Our test results in 08/04: +KEVIN 1:320, +cardiolipin, and +c1q. Otherwise negative, normal inflammatory markers, tsh, hepatitis panel, JANAY level. Discussed she has some markers that can be seen with SLE but not enough clinical symptoms to make this diagnosis yet. We need to monitor over time for change in serologies or clinical features. Discussed observing for joint pains/swelling, increased rashes, oral ulcers, pleurisy, change in breathing. F/u 6 months or sooner if new problems. Repeat labs next. Seen with Dr. Rodriguez. Assessment & Plan (09/04/2018 10:06 PM CDT): +KEVIN 1:640 and borderline +MEDICAL LOGISTICS SPECIALIST (1.1) on labs from sales effectiveness manager. Undergoing workup of angioedema. Not a lot of other symptoms to suggest CTD but does report white fingertips in cold and increased photosensitivity (rash/hives). Reviewed test results today with pt and mother. +KEVIN 1:320, +cardiolipin, and +c1q. Otherwise negative, normal inflammatory markers, tsh, hepatitis panel, JANAY level. Discussed she has some markers that can be seen with SLE but not enough clinical symptoms to make this diagnosis yet. We need to monitor over time for change in serologies or clinical features. Discussed observing for joint pains/swelling, increased rashes, oral ulcers, pleurisy, change in breathing. Even if we did treat her for CTD at this time there is no guarantee that it will improve her angioedema symptoms. No imaging ordered since not having any significant joint symptoms. F/u 4 months or sooner if new problems. Seen with Dr. Rodriguez. Assessment & Plan (08/01/2018 10:00 PM CDT): +KEVIN 1:640 and borderline +MEDICAL LOGISTICS SPECIALIST (1.1) on labs from sales effectiveness manager. Undergoing workup of angioedema. Not a lot of other symptoms to suggest CTD but does report white fingertips in cold and increased photosensitivity (rash/hives). Will check additional autoimmune serologies. No imaging ordered since not having any significant joint symptoms. F/u [address] Rodriguez. Angio-edema 08/01/2018 Assessment & Plan (07/04/2019 4:10 PM CDT): Seeing sales effectiveness manager Assessment & Plan (01/03/2019 3:45 PM CDT): Seeing sales effectiveness manager Dr. Hutson. Assessment & Plan (09/04/2018 10:06 PM CDT): Seeing sales effectiveness manager Dr. Hutson. Assessment & Plan (08/01/2018 10:01 PM CDT): Seeing sales effectiveness manager Dr. Hutson. Photosensitivity 08/01/2018 Assessment & Plan (08/01/2018 10:00 PM CDT): Pt has had hives on neck that seem to be worsened by sun. Raynaud's disease without gangrene 08/01/2018 Assessment & Plan (07/02/2020 6:22 PM CDT): Very intermittent episodes. Will monitor for now. No digital ulcers or sclerodactyly. Consider meds if worse Assessment & Plan (07/04/2019 4:10 PM CDT): No recent symptoms Assessment & Plan (08/01/2018 10:01 PM CDT): May be seen with CTD or as primary condition. Will check additional markers. Social History Tobacco Use Types Packs/Day Years Used Date Smoking Tobacco: Never Assessed Comments Unknown Sex and Gender Information Value Date Recorded Sex Assigned at Not on file Legal Sex Female 1:48 PM CDT Gender Identity Not on file Sexual Orientation Not on file Obstetrics History Last Filed Vital Signs Vital Sign Reading Time Taken Comments Blood Pressure 118/70 07/02/2020 4:15 PM CDT Pulse 72 07/04/2019 4:08 PM CDT Temperature 36.8 C (98.3 F) 07/02/2020 4:15 PM CDT Respiratory Rate - - Oxygen Saturation - - Inhaled Oxygen Concentration - - Weight 62.6 kg (138 lb) 07/02/2020 4:15 PM CDT Height 166.4 cm (5' 5.5) 09/03/2018 2:05 PM CDT Body Mass Index 22.62 09/03/2018 2:05 PM CDT Plan of Treatment Not on file Insurance [facility] H[facility]PPO Address: [facility] [address] [place] [address] Care Teams Viscosity Worker Relationship Specialty Start Date End Date Camilo King MD [address] [place] [address] PCP - General Family Medicine 07/02/20 Monty Rodriguez MD [address] [place] [address] Consulting Physician Rheumatology 07/04/18 Georgi Hutson MD [address] [place] [address] Referring Physician Allergy and Immunology 08/01/18
--- OUTSIDE RECORDS SUMMARY | 2025-01-06 14:42 | XMS_ITS | Clinical Summary ---
Author Organization [email or web address] Address [address] [place] [address] Care Team Providers Care Stockroom Inventory Clerk Name Role Phone Andrew Mariscal MD Primary Care Provider [phone] Source Comments [email or web address],non-owned Affiliates and Associated Physician Practices is amultiple site organization consisting of ambulatory clinics and hospital sitesin [place], [place], [place] and [place]. This disclosure is being madepursuant to the Care Everywhere program and may not contain all information available regarding this patient. Last updated 17.[email or web address] Allergies Active Allergy Reactions Criticality Noted Date Comments Penicillins Skin Reactions Medium 07/03/2016 Immunizations Immunization Administration Dates Next Due TDAP (7yrs+) 07/03/2016 Social History Tobacco Use Types Packs/Day Years Used Date Smoking Tobacco: Never Alcohol Use Standard Drinks/Week Comments No 0 (1 standard drink = 0.6 oz pur e alcohol) Comments Unknown Sex and Gender Information Value Date Recorded Sex Assigned at Not on file Legal Sex Female 5:40 PM MEMORY CARE PROGRAM DIRECTOR Gender Identity Not on file Sexual Orientation Not on file Last Filed Vital Signs Vital Sign Reading Time Taken Comments Blood Pressure 106/69 07/03/2016 5:30 PM CDT Pulse 74 07/03/2016 5:31 PM CDT Temperature 36.3 C (97.3 F) 07/03/2016 4:18 PM CDT Respiratory Rate 12 07/03/2016 5:31 PM CDT Oxygen Saturation 100% 07/03/2016 5:31 PM CDT Inhaled Oxygen Concentration - - Weight - - Height - - Body Mass Index - - Plan of Treatment Health Maintenance Due Date Last Done Comments HIV SCREENING 07/09/2003 HEPATITIS C SCREENING 07/04/2006 HEPATITIS B VACCINE (1 of 3 - 19+ 3-dose series) 07/09/2007 HPV VACCINE (1 - 3-dose SCDM series) 07/09/2015 DEPRESSION SCREENING 03/19/2024 COVID-19 VACCINE (1 - 2023-2 5 season) 2024 INFLUENZA VACCINE (#1) 2024 DTAP/TDAP/TD VACCINES (2 - T d or Tdap) 07/03/2026 07/03/2016 ZOSTER VACCINE (1 of 2) 2038 HIB VACCINE Aged Out No longer eligi ble based on patient's age to complete this topic MENINGOCOCCAL (Group B) VACC INE SHARED DECISION-MAKING Aged Out No longer eligibl e based on patient's age to complete this topic MENINGOCOCCAL GROUPS A/C/Y/W VACCINE Aged Out No longer eligible b ased on patient's age to complete this topic PNEUMOCOCCAL VACCINE Aged Out No long er eligible based on patient's age to complete this topic Care Teams Stockroom Inventory Clerk Relationship Specialty Start Date End Date Andrew Mariscal MD [address] [place] [address] PCP - General 07/03/16
--- OUTSIDE RECORDS SUMMARY | 2025-01-06 14:42 | XMS_ITS | Encounter Summary ---
Author Organization [facility] Address [address] [place] [address] Phone Care Team Providers Care Automotive Glass Specialist Name Role Phone Monty Rodriguez MD Unavailable [phone] Georgi Hutson MD Unavailable [phone] Camilo King MD Primary Care Provider [phone] Encounter Details Date Type Department Care Team (Late st Contact Info) Description 02/03/2021 Documentation [facility] [address] [place] [address] Lo Ching Social History Tobacco Use Types Packs/Day Years Used Date Smoking Tobacco: Never Assessed Comments Unknown Sex and Gender Information Value Date Recorded Sex Assigned at Not on file Legal Sex Female 1:48 PM CDT Gender Identity Not on file Sexual Orientation Not on file documented as of this encounter Plan of Treatment Not on file documented as of this encounter Visit Diagnoses Not on filedocumented in this encounter Care Teams Automotive Glass Specialist Relationship Specialty Start Date End Date Camilo King MD [address] [place] [address] PCP - General Family Medicine 07/02/20 Monty Rodriguez MD [address] [place] [address] Consulting Physician Rheumatology 07/04/18 Georgi Hutson MD [address] [facility] [address] [facility] [address] [place] [address] Referring Physician Allergy and Immunology 08/01/18 documented as of this encounter
[2025-01-06 19:05] LABS: Hematocrit 40.1 % (37.0-47.0); Hemoglobin 12.5 g/dL (12.0-15.0); Immature Granulocyte Percent A 0.3 % (0-0.5); Lymphocytes Absolute Auto 2.41 K/mm3 (0.9-3.2); Mean Corpuscular HGB Conc 31.2 g/dl (32-36); Mean Corpuscular Hemoglobin 29.5 pg (26-34); Mean Corpuscular Volume 94.6 fl (80-100); Nucleated Red Blood Cells Absolute Auto 0.000 K/mm3 (0.0-0.012); Nucleated Red Blood Cells Perc 0.0 % (0.0-0.2); Platelet Count Result 253 k/mm3 (150-375); Red Blood Count 4.24 M/mm3 (4.2-5.4); White Blood Count 8.7 K/mm3 (4.5-10.0)
[2025-01-06 19:25] LABS: Anion Gap 5 mmol/L (4-12); Blood Urea Nitrogen 10 mg/dL (7-17); Calcium 8.9 mg/dL (8.4-10.2); Carbon Dioxide 30 mmol/L (22-30); Chloride 100 mmol/L (98-107); Estimated Glomerular Filt Rate > 60; Glucose 90 mg/dL (65-110); Potassium 3.9 mmol/L (3.4-5.0); Sodium 135 mmol/L (137-145)
== END 2025-01-06 11:48 | disposition home or self-care (01) ==
LOC: ANHGOSHLAB 11:48
PROVIDERS: PCP Family Medicine; Visit Provider Nurse Practitioner Family
DX: N93.9 Abnormal uterine and vaginal bleeding, unspecified (principal)
CPT/HCPCS: 36415; 80048; 85025